=== PATIENT | female | born 2000 | race Caucasian/White ===

== ENCOUNTER 2022-02-06 18:44 | Outpatient (CLI) | payer OTHER ==
--- NOTE | 2022-02-06 19:42 | XRAY Report ---
PROCEDURE: Finger(s) RT INDICATIONS: CONTUSION OF RIGHT INDEX FINGER TECHNIQUE: AP hand, 3 views of the first finger(s) acquired. COMPARISON: None FINDINGS: Bones: No fractures or dislocations. No suspicious bony lesions. Soft tissues: No suspicious soft tissue calcifications. IMPRESSION: No visualized acute fracture or dislocation. However, occult injury cannot be excluded. Recommend antwan rt interval imaging follow-up in 7-10 days as clinically indicated for additional evaluation. Reviewed by: Marisela Hays MD on 02/06/2022 7:40 PM PST Approved by: Marisela Hays MD on 02/06/2022 7:40 PM [facility] Station ID: [id number]
== END 2022-02-06 18:45 | disposition home or self-care (01) ==
LOC: DI 18:44
PROVIDERS: ATTEND Nurse Practitioner
DX: S60.021A Contusion of right index finger without damage to nail, initial encounter (principal)